=== PATIENT | female | born 1945 | race Caucasian/White ===

== ENCOUNTER 2018-06-22 07:30 | Inpatient (IN) ==
[2018-06-15 09:25] LABS: Basophils % 0.3 % (0.0-0.8); Eosinophils # 0.1 10*3/uL (0.0-0.87); Eosinophils % 2.1 % (0.00-10.9); Hematocrit 32.1 VOL% (35.7-47.0); Hemoglobin 9.8 GM/DL (12.0-16.0); Immature Granulocytes % 0.3 %; Immature Granulocytes Absolute 0.02 #; Lymphocytes % 15.9 % (21.3-54.2); Mean Corpuscular HGB Conc 30.5 GM/DL (32-36); Mean Corpuscular Hemoglobin 25 PG (27-34); Mean Corpuscular Volume 80.9 FL (87-102); Mean Platelet Volume 9.8 FL (9.6-12.0); Monocytes # 0.7 10*3/uL (0.11-0.8); Monocytes % 11.7 % (1.7-12.7); Neutrophils # 4.3 10*3/uL (1.4-7.4); Neutrophils % 69.7 % (38.7-73.9); Platelet Count 253 T/CUMM (130-400); Red Blood Count 3.97 MC/CUMM (3.8-5.5); Red Cell Distribution Width 19.6 % (9.3-17.3); White Blood Count 6.2 T/CUMM (4-12)
[2018-06-15 09:33] LABS: Apearance,Urine Slightly Hazy (Clear); Bacteria,Urine Occasional /HPF (Few); Bilirubin,Urine Negative (Negative); Blood, Urine Small mg/dL (Negative); Glucose,Urine (UA) Negative (Negative); Ketones,Urine Negative (Negative); Nitrite,Urine Positive (Negative); Protein,Urine Negative; RBC,Urine 3 /HPF (0-4); Squamous Epithelial Cell,Urine Occasional /HPF (0-10); Urine Color Yellow (Yellow); Urine Specific Gravity 1.009 (1.001-1.035); Urine Urobilinogen < 2.0 EU/DL (0.2-1.0); WBC,Urine 99 /HPF (0-6)
[2018-06-15 09:37] LABS: PT Patient Result 10.2 SECS; Partial Thromboplastin Time 24.5 SECS (0-40)
[2018-06-15 09:48] LABS: Calcium 9.1 MG/DL (8.5-10.1); Potassium 5.2 MMOL/L (3.5-5.1)
[~2018-06-22 07:30] MED LIST: SODIUM CHLORIDE 0.9% 1,000 ML IV PRN
[2018-07-06] MEDS ORDERED: ACETAMINOPHEN INJ 1,000 MG in PREMIX 1 EACH IV ONE (06:00)
[2018-07-06] MEDS ORDERED: CEFUROXIME INJ 1,500 MG in SYRINGE 1 EACH IV ONE (06:00)
[2018-07-06] MEDS ORDERED: BUPIVACAINE LIPOSOMAL 20 ML/266 MG VIAL INFILTRAT ONE (06:00)
[2018-07-06] MEDS ORDERED: ACETAMINOPHEN 1,000 MG/100 ML VIAL IV ONE ×2 (06:16→11:12)
[2018-07-06] MEDS ORDERED: CEFUROXIME 1,500 MG VIAL ONE (06:16)
[2018-07-06] MEDS ORDERED: BUPIVACAINE LIPOSOMAL 20 ML/266 MG VIAL ONE (06:22)
[2018-07-06] MEDS ORDERED: TISSUE ADHESIVE 1 EACH APPLICATOR TOP ONE (06:22)
[2018-07-06] MEDS: LACTATED RINGERS 1,000 ML IV SCH (06:24)
[2018-07-06] MEDS ORDERED: PANTOPRAZOLE 40 MG TABLET PO ONE ×2 (06:30→06:40)
[2018-07-06] MEDS ORDERED: DIAZEPAM 5 MG TABLET PO ONE (06:30)
[2018-07-06] MEDS ORDERED: PHENYLEPHRINE DRIP 20 MG/250 ML PREMIX IV ONE (06:39)
[2018-07-06] MEDS ORDERED: HEPARIN/NACL 0.9% 2 UNITS/ML 500 ML IV ONE (06:39)
[2018-07-06] MEDS ORDERED: DIAZEPAM 5 MG TABLET ONE (06:40)
[2018-07-06] MEDS ORDERED: SUGAMMADEX 200 MG/2 ML VIAL IV ONE (10:46)
[2018-07-06] MEDS ORDERED: ONDANSETRON 4 MG/2 ML VIAL IV PRN ×2 (11:01→11:27)
[2018-07-06] MEDS ORDERED: PROPOFOL 200 MG/20 ML VIAL IV ONE (11:11)
[2018-07-06] MEDS ORDERED: DESFLURANE 1 UNIT/15 MINUTE INH ONE (11:11)
[2018-07-06] MEDS ORDERED: fentaNYL 100 MCG/2 ML VIAL ONE (11:12)
[2018-07-06] MEDS ORDERED: ROCURONIUM 100 MG/10 ML VIAL IV ONE (11:12)
[2018-07-06] MEDS ORDERED: PHENYLEPHRINE 1 MG/10 ML SYRINGE IV ONE (11:12)
[2018-07-06] MEDS ORDERED: MIDAZOLAM 2 MG/2 ML VIAL ONE (11:12)
[2018-07-06] MEDS ORDERED: LACTATED RINGERS 2,000 ML IV ONE (11:12)
[2018-07-06 11:14] LABS: Apearance,Urine CLEAR (Clear); Bilirubin,Urine Negative (Negative); Blood, Urine Negative (Negative); Glucose,Urine (UA) Negative (Negative); Ketones,Urine Negative (Negative); Nitrite,Urine Negative (Negative); Protein,Urine Negative; Urine Color Straw (Yellow); Urine Specific Gravity 1.011 (1.001-1.035); Urine Urobilinogen < 2.0 EU/DL (0.2-1.0)
[2018-07-06 11:31] LABS: Basophils % 0.1 % (0.0-0.8); Eosinophils % 0.1 % (0.00-10.9); Hemoglobin 9.1 GM/DL (12.0-16.0); Immature Granulocytes % 0.3 %; Immature Granulocytes Absolute 0.04 #; Lymphocytes # 0.9 10*3/uL (1.4-4.0); Lymphocytes % 6.2 % (21.3-54.2); Mean Corpuscular HGB Conc 29.4 GM/DL (32-36); Mean Corpuscular Hemoglobin 24 PG (27-34); Mean Platelet Volume 9.5 FL (9.6-12.0); Monocytes # 1.2 10*3/uL (0.11-0.8); Neutrophils # 11.7 10*3/uL (1.4-7.4); Neutrophils % 84.3 % (38.7-73.9); Platelet Count 263 T/CUMM (130-400); Red Blood Count 3.78 MC/CUMM (3.8-5.5); Red Cell Distribution Width 18.4 % (9.3-17.3); White Blood Count 13.8 T/CUMM (4-12)
[2018-07-06] MEDS: HYDROmorphone 2 MG/1 ML VIAL IV PRN ×2 (11:33→11:45)
[2018-07-06 11:50] LABS: Calcium 8.4 MG/DL (8.5-10.1); Osmolality,Calculated 284.5 MOS/KG (273-304)
[2018-07-06] MEDS: KETOROLAC 15 MG/1 ML VIAL IV SCH ×3 (12:46→22:57)
[2018-07-06] MEDS: GABAPENTIN 100 MG CAPSULE PO SCH ×2 (15:02→22:23)
[2018-07-06] MEDS: POTASSIUM CHLORIDE INJ 10 MEQ in SODIUM CHLORIDE 0.45% 1,000 ML IV SCH ×2 (15:02→22:55)
[2018-07-06] MEDS: ACETAMINOPHEN INJ 1,000 MG in PREMIX 1 EACH IV SCH (18:56)
[2018-07-06] MEDS: CEFUROXIME INJ 1,500 MG in SYRINGE 1 EACH IV SCH (19:55)
[2018-07-07] MEDS: ACETAMINOPHEN INJ 1,000 MG in PREMIX 1 EACH IV SCH (00:38)
[2018-07-07] MEDS: KETOROLAC 15 MG/1 ML VIAL IV SCH ×3 (05:15→17:43)
[2018-07-07 05:57] LABS: Basophils % 0.1 % (0.0-0.8); Eosinophils % 0.2 % (0.00-10.9); Hematocrit 27.2 VOL% (35.7-47.0); Hemoglobin 8.2 GM/DL (12.0-16.0); Immature Granulocytes % 0.2 %; Immature Granulocytes Absolute 0.02 #; Lymphocytes # 0.9 10*3/uL (1.4-4.0); Mean Corpuscular HGB Conc 30.1 GM/DL (32-36); Mean Corpuscular Hemoglobin 24 PG (27-34); Mean Corpuscular Volume 80.2 FL (87-102); Mean Platelet Volume 10.6 FL (9.6-12.0); Monocytes # 1.2 10*3/uL (0.11-0.8); Monocytes % 14.2 % (1.7-12.7); Neutrophils # 6.2 10*3/uL (1.4-7.4); Neutrophils % 74.3 % (38.7-73.9); Platelet Count 239 T/CUMM (130-400); Red Blood Count 3.39 MC/CUMM (3.8-5.5); Red Cell Distribution Width 18.4 % (9.3-17.3); White Blood Count 8.3 T/CUMM (4-12)
[2018-07-07] MEDS: ENOXAPARIN 40 MG/0.4 ML SYRINGE SUBCUT SCH (05:58)
[2018-07-07] MEDS: ACETAMINOPHEN 500 MG TABLET PO SCH ×3 (05:58→17:43)
[2018-07-07] MEDS ORDERED: traMADol 50 MG TABLET PO PRN (06:00)
[2018-07-07 06:25] LABS: Calcium 8.5 MG/DL (8.5-10.1); Osmolality,Calculated 281.5 MOS/KG (273-304)
[2018-07-07] MEDS: POTASSIUM CHLORIDE INJ 10 MEQ in SODIUM CHLORIDE 0.45% 1,000 ML IV SCH (07:30)
[2018-07-07] MEDS: CEFUROXIME INJ 1,500 MG in SYRINGE 1 EACH IV SCH (07:55)
[2018-07-07] MEDS ORDERED: PANTOPRAZOLE 40 MG VIAL IV SCH (09:00)
[2018-07-07] MEDS: CELECOXIB 200 MG CAPSULE PO SCH ×2 (09:00→20:38)
[2018-07-07] MEDS: GABAPENTIN 100 MG CAPSULE PO SCH ×3 (09:00→20:39)
[2018-07-07] MEDS: LACTATED RINGERS 1,000 ML IV SCH (10:15)
[2018-07-07] MEDS: CYCLOBENZAPRINE 10 MG TABLET PO SCH ×2 (15:07→20:38)
[2018-07-07] MEDS: metFORMIN 500 MG TABLET PO SCH (17:43)
[2018-07-07] MEDS: LOSARTAN 50 MG TABLET PO SCH (20:38)
[2018-07-08] MEDS: KETOROLAC 15 MG/1 ML VIAL IV SCH ×2 (00:28→04:43)
[2018-07-08] MEDS: ACETAMINOPHEN 500 MG TABLET PO SCH ×5 (00:28→22:30)
[2018-07-08] MEDS: ENOXAPARIN 40 MG/0.4 ML SYRINGE SUBCUT SCH (04:43)
[2018-07-08 05:42] LABS: Calcium 8.5 MG/DL (8.5-10.1); Osmolality,Calculated 281.4 MOS/KG (273-304)
[2018-07-08 05:50] LABS: Basophils % 0.4 % (0.0-0.8); Eosinophils # 0.1 10*3/uL (0.0-0.87); Eosinophils % 1.9 % (0.00-10.9); Hemoglobin 11.5 GM/DL (12.0-16.0); Immature Granulocytes % 0.6 %; Immature Granulocytes Absolute 0.03 #; Lymphocytes # 0.7 10*3/uL (1.4-4.0); Lymphocytes % 12.7 % (21.3-54.2); Mean Corpuscular HGB Conc 29.3 GM/DL (32-36); Mean Corpuscular Hemoglobin 25 PG (27-34); Mean Corpuscular Volume 83.8 FL (87-102); Mean Platelet Volume 11.3 FL (9.6-12.0); Monocytes # 0.7 10*3/uL (0.11-0.8); Monocytes % 12.7 % (1.7-12.7); Neutrophils # 3.8 10*3/uL (1.4-7.4); Neutrophils % 71.7 % (38.7-73.9); Platelet Count 169 T/CUMM (130-400); Red Blood Count 4.68 MC/CUMM (3.8-5.5); Red Cell Distribution Width 18.5 % (9.3-17.3); White Blood Count 5.3 T/CUMM (4-12)
[2018-07-08 05:51] LABS: Hematocrit 39.2 VOL% (35.7-47.0)
[2018-07-08] MEDS ORDERED: NON-FORMULARY MEDICATION (Meloxicam [Meloxicam] 15 MG) PO SCH (09:00)
[2018-07-08] MEDS ORDERED: NON-FORMULARY MEDICATION (Liraglutide [Victoza 2-Pak] 0.6 MG) SQ SCH (09:00)
[2018-07-08] MEDS: LACTATED RINGERS 1,000 ML IV SCH (09:08)
[2018-07-08] MEDS: LEVOTHYROXINE 125 MCG TABLET PO SCH (09:10)
[2018-07-08] MEDS: metFORMIN 500 MG TABLET PO SCH ×2 (09:10→17:28)
[2018-07-08] MEDS: amLODIPine 10 MG TABLET PO SCH (09:10)
[2018-07-08] MEDS: PIOGLITAZONE 15 MG TABLET PO SCH (09:10)
[2018-07-08] MEDS: CYCLOBENZAPRINE 10 MG TABLET PO SCH ×3 (09:10→20:23)
[2018-07-08] MEDS: DULoxetine 30 MG CAPSULE PO SCH (09:10)
[2018-07-08] MEDS: TOLTERODINE LA 4 MG CAPSULE PO SCH (09:11)
[2018-07-08] MEDS: GABAPENTIN 100 MG CAPSULE PO SCH ×3 (09:11→20:23)
[2018-07-08] MEDS: ARIPiprazole 10 MG TABLET PO SCH (09:11)
[2018-07-08] MEDS: PANTOPRAZOLE 20 MG TABLET PO SCH (09:11)
[2018-07-08] MEDS: CELECOXIB 200 MG CAPSULE PO SCH ×2 (09:11→20:23)
[2018-07-08] MEDS: ATORVASTATIN 40 MG TABLET PO SCH (09:11)
[2018-07-08] MEDS: LOSARTAN 50 MG TABLET PO SCH (20:23)
[2018-07-09] MEDS: ACETAMINOPHEN 500 MG TABLET PO SCH (04:03)
[2018-07-09] MEDS: ENOXAPARIN 40 MG/0.4 ML SYRINGE SUBCUT SCH (04:03)
[2018-07-09] MEDS: LACTATED RINGERS 1,000 ML IV SCH (06:11)
[2018-07-09 06:36] LABS: Basophils % 0.1 % (0.0-0.8); Eosinophils # 0.3 10*3/uL (0.0-0.87); Eosinophils % 3.6 % (0.00-10.9); Hematocrit 30.5 VOL% (35.7-47.0); Hemoglobin 9.1 GM/DL (12.0-16.0); Immature Granulocytes % 0.3 %; Immature Granulocytes Absolute 0.02 #; Lymphocytes % 13.5 % (21.3-54.2); Mean Corpuscular HGB Conc 29.8 GM/DL (32-36); Mean Corpuscular Hemoglobin 24 PG (27-34); Mean Corpuscular Volume 81.1 FL (87-102); Mean Platelet Volume 10.8 FL (9.6-12.0); Monocytes # 0.9 10*3/uL (0.11-0.8); Monocytes % 12.2 % (1.7-12.7); Neutrophils # 5.2 10*3/uL (1.4-7.4); Neutrophils % 70.3 % (38.7-73.9); Platelet Count 251 T/CUMM (130-400); Red Blood Count 3.76 MC/CUMM (3.8-5.5); Red Cell Distribution Width 18.1 % (9.3-17.3); White Blood Count 7.4 T/CUMM (4-12)
[2018-07-09 07:03] LABS: Calcium 8.3 MG/DL (8.5-10.1); Osmolality,Calculated 283.1 MOS/KG (273-304); Potassium 4.1 MMOL/L (3.5-5.1)
[2018-07-09 08:15] VITALS: BP 152/70
[2018-07-09] MEDS: GABAPENTIN 100 MG CAPSULE PO SCH (09:20)
[2018-07-09] MEDS: ARIPiprazole 10 MG TABLET PO SCH (09:20)
[2018-07-09] MEDS: metFORMIN 500 MG TABLET PO SCH (09:20)
[2018-07-09] MEDS: TOLTERODINE LA 4 MG CAPSULE PO SCH (09:20)
[2018-07-09] MEDS: PIOGLITAZONE 15 MG TABLET PO SCH (09:20)
[2018-07-09] MEDS: CELECOXIB 200 MG CAPSULE PO SCH (09:20)
[2018-07-09] MEDS: amLODIPine 10 MG TABLET PO SCH (09:20)
[2018-07-09] MEDS: PANTOPRAZOLE 20 MG TABLET PO SCH (09:21)
[2018-07-09] MEDS: ATORVASTATIN 40 MG TABLET PO SCH (09:21)
[2018-07-09] MEDS: DULoxetine 30 MG CAPSULE PO SCH (09:21)
[2018-07-09] MEDS: LEVOTHYROXINE 125 MCG TABLET PO SCH (09:21)
[2018-07-09] MEDS: CYCLOBENZAPRINE 10 MG TABLET PO SCH (09:21)
== END 2018-07-09 11:24 | disposition home health service (06) | DRG 165 ==
LOC: N.SDSINP 07-06 05:53 → N.CC 07-06 08:45 → N.TELEN 07-07 12:26
PROVIDERS: ADMIT Thoracic Surgery (Cardiothoracic Vascular Surgery); ATTEND Thoracic Surgery (Cardiothoracic Vascular Surgery)

== ENCOUNTER 2022-01-06 07:56 | Inpatient (IN) ==
[2022-01-06] MEDS ORDERED: DILTIAZEM 50 MG/10 ML VIAL IV STA (08:26)
[2022-01-06] MEDS ORDERED: ASPIRIN 325 MG TABLET PO STA (08:26)
[2022-01-06] MEDS ORDERED: SODIUM CHLORIDE 0.9% 1,000 ML IV STA ×2 (08:26→10:31)
[2022-01-06 08:33] LABS: Basophils % 0.3 % (0.0-0.8); Eosinophils # 0.1 10*3/uL (0.0-0.87); Hematocrit 26.6 VOL% (35.7-47.0); Hemoglobin 8.3 GM/DL (12.0-16.0); Immature Granulocytes % 1.1 %; Immature Granulocytes Absolute 0.07 #; Lymphocytes # 0.1 10*3/uL (1.4-4.0); Lymphocytes % 1.1 % (21.3-54.2); Mean Corpuscular HGB Conc 31.2 GM/DL (32-36); Mean Corpuscular Volume 90.8 FL (87-102); Mean Platelet Volume 10.4 FL (9.6-12.0); Monocytes # 1.3 10*3/uL (0.11-0.8); Monocytes % 20.4 % (1.7-12.7); Neutrophils % 76.1 % (38.7-73.9); Platelet Count 246 T/CUMM (130-400); Red Blood Count 2.93 MC/CUMM (3.8-5.5); Red Cell Distribution Width 15.9 % (9.3-17.3); White Blood Count 6.1 T/CUMM (4-12)
[2022-01-06] MEDS ORDERED: DILTIAZEM 25 MG/5 ML VIAL IV STA (08:38)
[2022-01-06 08:41] LABS: INR 1.1; PT Patient Result 11.9 SECS (10.5-12.0)
[2022-01-06 08:46] LABS: Alanine Aminotransferase 19 U/L (13-56); Albumin 1.8 G/DL (3.4-5.0); Alkaline Phosphatase 89 U/L (45-117); Aspartate Amino Transferase 20 U/L (0-37); Blood Urea Nitrogen 29 MG/DL (7-18); Calcium 8.7 MG/DL (8.5-10.1); Carbon Dioxide 25 MMOL/L (21-32); Chloride 103 MMOL/L (98-107); Estimated Glom Filtration Rate 95 ML/MIN; Glucose 121 MG/DL (74-106); Sodium 136 MMOL/L (136-145); Total Protein 5.2 G/DL (6.4-8.2)
[2022-01-06 08:57] LABS: Band Neutrophils 9 % (0-10); Eosinophils 1 % (0-10); Lymphocytes 1 % (20-55); Microcytosis 1+; Myelocytes 1 %; Total Cells Counted 100
[2022-01-06 08:58] LABS: Hypochromia Slight; Ovalocytes Slight
[2022-01-06] MEDS ORDERED: VANCOMYCIN INJ 1,000 MG in SODIUM CHLORIDE 0.9% 250 ML IV STA (10:13)
[2022-01-06] MEDS ORDERED: PIPERACILLIN/TAZOBACTAM 3,375 MG in SODIUM CHLORIDE 0.9% 100 ML IV STA (10:13)
[2022-01-06] MEDS ORDERED: DILTIAZEM INJ 100 MG in SODIUM CHLORIDE 0.9% 100 ML IV SCH (10:30)
[2022-01-06] MEDS ORDERED: GLUCAGON 1 MG VIAL IM PRN (11:10)
[2022-01-06] MEDS ORDERED: ONDANSETRON 4 MG/2 ML VIAL IV PRN (11:10)
[2022-01-06] MEDS ORDERED: ACETAMINOPHEN 325 MG TABLET PO PRN (11:10)
[2022-01-06] MEDS ORDERED: DEXTROSE 10% 250 ML BAG IV PRN (11:25)
[2022-01-06] MEDS ORDERED: VANCOMYCIN INJ 1,000 MG in SODIUM CHLORIDE 0.9% 250 ML IV SCH (11:30)
[2022-01-06 11:55] LABS: Bacteria,Urine Occasional /HPF (Few); Mucus,Urine Many /LPF (Occasional); RBC,Urine 1 /HPF (0-4)
[2022-01-06 11:56] LABS: Bilirubin,Urine Negative (Negative); Blood, Urine Negative (Negative); Glucose,Urine (UA) Negative (Negative); Ketones,Urine Negative (Negative); Nitrite,Urine Negative (Negative); Protein,Urine Trace mg/dL (Negative); Urine Appearance Clear (Clear); Urine Color Yellow (Yellow); Urine Specific Gravity 1.015 (1.001-1.035); Urine Urobilinogen 0.2 eU/dL (<2.0); Urine pH 5.5 (4.5-8.0)
[2022-01-06] MEDS: ENOXAPARIN 40 MG/0.4 ML SYRINGE SUBCUT SCH (12:11)
[2022-01-06] MEDS: INSULIN LISPRO 100 UNIT/ML SUBCUT SCH ×3 (12:21→20:51)
[2022-01-06] MEDS: PIPERACILLIN/TAZOBACTAM 3,375 MG in SODIUM CHLORIDE 0.9% 100 ML IV SCH (20:10)
[2022-01-07] MEDS: VANCOMYCIN INJ 1,250 MG in SODIUM CHLORIDE 0.9% 250 ML IV SCH ×2 (00:21→14:17)
[2022-01-07] MEDS ORDERED: PHENAZOPYRIDINE 95 MG TABLET PO ONE (03:09)
[2022-01-07] MEDS: PIPERACILLIN/TAZOBACTAM 3,375 MG in SODIUM CHLORIDE 0.9% 100 ML IV SCH ×3 (05:44→22:29)
[2022-01-07 05:51] LABS: Basophils % 0.3 % (0.0-0.8); Eosinophils # 0.1 10*3/uL (0.0-0.87); Eosinophils % 1.4 % (0.00-10.9); Hematocrit 25.2 VOL% (35.7-47.0); Hemoglobin 7.8 GM/DL (12.0-16.0); Immature Granulocytes % 1.2 %; Immature Granulocytes Absolute 0.12 #; Lymphocytes # 0.2 10*3/uL (1.4-4.0); Mean Corpuscular Volume 90.3 FL (87-102); Mean Platelet Volume 10.3 FL (9.6-12.0); Monocytes # 1.8 10*3/uL (0.11-0.8); Monocytes % 18.8 % (1.7-12.7); Neutrophils % 76.3 % (38.7-73.9); Platelet Count 200 T/CUMM (130-400); Red Blood Count 2.79 MC/CUMM (3.8-5.5); Red Cell Distribution Width 15.8 % (9.3-17.3); White Blood Count 9.7 T/CUMM (4-12)
[2022-01-07] MEDS ORDERED: LEVALBUTEROL 1.25 MG/3 ML NEB RESP TX ONE (05:57)
[2022-01-07 06:11] LABS: Calcium 9.1 MG/DL (8.5-10.1); Osmolality,Calculated 269.2 MOS/KG (273-304); Potassium 3.6 MMOL/L (3.5-5.1)
[2022-01-07 06:13] LABS: Band Neutrophils 1 % (0-10); Eosinophils 1 % (0-10); Hypochromia Slight; Lymphocytes 4 % (20-55); Microcytosis Slight; Nucleated Red Blood Cells 1 (0-5); Platelet Estimate Adequate; Total Cells Counted 100
[2022-01-07] MEDS ORDERED: PANTOPRAZOLE 40 MG TABLET PO SCH (06:30)
[2022-01-07] MEDS ORDERED: FLUTICASONE/SALMETEROL 250-50 DISKUS 14 DOSE INH PRN (07:33)
[2022-01-07] MEDS ORDERED: (Semaglutide [Ozempic] 1 mg/dose (2 mg/1.5 mL) Pen Injector) SUBCUT SCH (07:45)
[2022-01-07] MEDS ORDERED: SODIUM CHLORIDE 0.9% 1,000 ML IV ONE (08:04)
[2022-01-07] MEDS ORDERED: MYLANTA/LIDO VISC/NYST 180 ML BOTTLE SWISH/SWAL PRN (08:07)
[2022-01-07] MEDS ORDERED: FLUCONAZOLE 200 MG TABLET PO SCH (09:00)
[2022-01-07] MEDS ORDERED: PIOGLITAZONE 15 MG TABLET PO SCH (09:00)
[2022-01-07] MEDS: LOSARTAN 50 MG TABLET PO SCH (09:49)
[2022-01-07] MEDS: MULTIVITAMIN (CENTRUM) TABLET PO SCH (09:49)
[2022-01-07] MEDS: DULoxetine 30 MG CAPSULE PO SCH ×2 (09:50→22:19)
[2022-01-07] MEDS: FERROUS SULFATE 325 MG TABLET PO SCH (09:50)
[2022-01-07] MEDS: ASCORBIC ACID 500 MG TABLET PO SCH (09:50)
[2022-01-07] MEDS: METOPROLOL TARTRATE 25 MG TABLET PO SCH ×2 (09:51→22:20)
[2022-01-07] MEDS: hydroCHLOROthiazide 25 MG TABLET PO SCH (09:51)
[2022-01-07] MEDS: CHOLECALCIFEROL 1,000 UNIT TABLET PO SCH (09:51)
[2022-01-07] MEDS: GABAPENTIN 300 MG CAPSULE PO SCH ×2 (09:51→22:20)
[2022-01-07] MEDS: MULTIVITAMIN (OCUVITE) TABLET PO SCH ×2 (09:52→22:20)
[2022-01-07] MEDS: ARIPiprazole 10 MG TABLET PO SCH (09:53)
[2022-01-07] MEDS: amLODIPine 2.5 MG TABLET PO SCH (09:57)
[2022-01-07] MEDS: ATORVASTATIN 10 MG TABLET PO SCH (09:57)
[2022-01-07] MEDS: PANTOPRAZOLE 40 MG TABLET PO SCH ×2 (09:58→22:20)
[2022-01-07] MEDS: INSULIN LISPRO 100 UNIT/ML SUBCUT SCH ×4 (10:02→22:20)
[2022-01-07] MEDS: SODIUM CHLORIDE 0.9% 500 ML IV SCH ×3 (10:02→22:30)
[2022-01-07] MEDS: CYCLOBENZAPRINE 10 MG TABLET PO SCH ×2 (10:03→22:20)
[2022-01-07] MEDS: LEVOTHYROXINE 150 MCG TABLET PO SCH (10:03)
[2022-01-07] MEDS ORDERED: SODIUM CHLORIDE 0.9% 1,000 ML IV PRN (12:08)
[2022-01-07] MEDS: ENOXAPARIN 40 MG/0.4 ML SYRINGE SUBCUT SCH (14:15)
[2022-01-07] MEDS: SUCRALFATE 1 GM/10 ML UDCUP PO SCH (17:10)
[2022-01-08] MEDS: VANCOMYCIN INJ 1,250 MG in SODIUM CHLORIDE 0.9% 250 ML IV SCH ×2 (00:12→13:58)
[2022-01-08 05:23] LABS: Basophils % 0.2 % (0.0-0.8); Eosinophils # 0.1 10*3/uL (0.0-0.87); Eosinophils % 1.2 % (0.00-10.9); Hemoglobin 8.6 GM/DL (12.0-16.0); Immature Granulocytes % 1.6 %; Immature Granulocytes Absolute 0.19 #; Lymphocytes # 0.2 10*3/uL (1.4-4.0); Lymphocytes % 1.4 % (21.3-54.2); Mean Corpuscular HGB Conc 31.9 GM/DL (32-36); Mean Corpuscular Volume 89.1 FL (87-102); Mean Platelet Volume 10.7 FL (9.6-12.0); Monocytes # 1.5 10*3/uL (0.11-0.8); Monocytes % 12.7 % (1.7-12.7); Neutrophils % 82.9 % (38.7-73.9); Platelet Count 190 T/CUMM (130-400); Red Blood Count 3.03 MC/CUMM (3.8-5.5); Red Cell Distribution Width 15.9 % (9.3-17.3); White Blood Count 11.7 T/CUMM (4-12)
[2022-01-08] MEDS: PIPERACILLIN/TAZOBACTAM 3,375 MG in SODIUM CHLORIDE 0.9% 100 ML IV SCH ×3 (05:32→21:40)
[2022-01-08] MEDS: LEVOTHYROXINE 150 MCG TABLET PO SCH (05:34)
[2022-01-08] MEDS: SODIUM CHLORIDE 0.9% 500 ML IV SCH ×3 (05:36→18:50)
[2022-01-08 05:38] LABS: Calcium 9.1 MG/DL (8.5-10.1); Osmolality,Calculated 270.1 MOS/KG (273-304); Potassium 3.2 MMOL/L (3.5-5.1)
[2022-01-08 05:46] LABS: Band Neutrophils 1 % (0-10); Lymphocytes 1 % (20-55); Nucleated Red Blood Cells 1 (0-5); Platelet Estimate Adequate; Total Cells Counted 100
[2022-01-08] MEDS: SUCRALFATE 1 GM/10 ML UDCUP PO SCH ×2 (08:00→16:44)
[2022-01-08] MEDS: INSULIN LISPRO 100 UNIT/ML SUBCUT SCH ×4 (08:08→22:11)
[2022-01-08] MEDS: DULoxetine 30 MG CAPSULE PO SCH ×2 (11:30→21:41)
[2022-01-08] MEDS: hydroCHLOROthiazide 25 MG TABLET PO SCH (11:30)
[2022-01-08] MEDS: METOPROLOL TARTRATE 25 MG TABLET PO SCH ×2 (11:30→21:41)
[2022-01-08] MEDS: MULTIVITAMIN (CENTRUM) TABLET PO SCH (11:30)
[2022-01-08] MEDS: ARIPiprazole 10 MG TABLET PO SCH (11:30)
[2022-01-08] MEDS: ASCORBIC ACID 500 MG TABLET PO SCH (11:30)
[2022-01-08] MEDS: LOSARTAN 50 MG TABLET PO SCH ×2 (11:31→11:44)
[2022-01-08] MEDS: PANTOPRAZOLE 40 MG TABLET PO SCH ×2 (11:31→21:41)
[2022-01-08] MEDS: amLODIPine 2.5 MG TABLET PO SCH (11:31)
[2022-01-08] MEDS: GABAPENTIN 300 MG CAPSULE PO SCH ×2 (11:31→21:41)
[2022-01-08] MEDS: CHOLECALCIFEROL 1,000 UNIT TABLET PO SCH (11:33)
[2022-01-08] MEDS: CYCLOBENZAPRINE 10 MG TABLET PO SCH ×2 (11:39→21:49)
[2022-01-08] MEDS: DOCUSATE SODIUM 100 MG CAPSULE PO SCH ×3 (11:39→21:42)
[2022-01-08] MEDS: MULTIVITAMIN (OCUVITE) TABLET PO SCH ×2 (11:40→22:20)
[2022-01-08] MEDS: ENOXAPARIN 40 MG/0.4 ML SYRINGE SUBCUT SCH (11:43)
[2022-01-08] MEDS ORDERED: FUROSEMIDE 40 MG/4 ML VIAL IV ONE (13:00)
[2022-01-08] MEDS: FERROUS SULFATE 325 MG TABLET PO SCH (13:53)
[2022-01-08] MEDS: ATORVASTATIN 10 MG TABLET PO SCH (13:56)
[2022-01-08] MEDS: ALBUTEROL/IPRATROPIUM 3 ML NEB RESP TX SCH ×4 (14:43→23:10)
[2022-01-08] MEDS: POTASSIUM CHLORIDE RIDER 10 MEQ/100 ML PREMIX IV SCH ×3 (14:47→17:13)
[2022-01-08] MEDS: methylPREDNISolone SOD SUC 40 MG/1 ML VIAL IV SCH ×2 (14:48→21:40)
[2022-01-09] MEDS: ALBUTEROL/IPRATROPIUM 3 ML NEB RESP TX SCH ×5 (03:48→19:32)
[2022-01-09] MEDS: PIPERACILLIN/TAZOBACTAM 3,375 MG in SODIUM CHLORIDE 0.9% 100 ML IV SCH ×3 (05:17→22:31)
[2022-01-09] MEDS: LEVOTHYROXINE 150 MCG TABLET PO SCH (05:42)
[2022-01-09 05:48] LABS: Basophils % 0.2 % (0.0-0.8); Hematocrit 29.5 VOL% (35.7-47.0); Hemoglobin 9.5 GM/DL (12.0-16.0); Immature Granulocytes Absolute 0.12 #; Lymphocytes # 0.1 10*3/uL (1.4-4.0); Lymphocytes % 1.1 % (21.3-54.2); Mean Corpuscular HGB Conc 32.2 GM/DL (32-36); Mean Corpuscular Volume 87.5 FL (87-102); Mean Platelet Volume 10.4 FL (9.6-12.0); Monocytes # 0.3 10*3/uL (0.11-0.8); Monocytes % 2.2 % (1.7-12.7); Neutrophils % 95.5 % (38.7-73.9); Platelet Count 215 T/CUMM (130-400); Red Blood Count 3.37 MC/CUMM (3.8-5.5); Red Cell Distribution Width 15.6 % (9.3-17.3); White Blood Count 12.4 T/CUMM (4-12)
[2022-01-09] MEDS: methylPREDNISolone SOD SUC 40 MG/1 ML VIAL IV SCH ×3 (05:55→22:32)
[2022-01-09 06:09] LABS: Albumin 1.5 G/DL (3.4-5.0); Bilirubin,Total 0.4 MG/DL (0.20-1.00); Calcium 9.7 MG/DL (8.5-10.1); Osmolality,Calculated 267.4 MOS/KG (273-304); Potassium 3.1 MMOL/L (3.5-5.1); Total Protein 6.5 G/DL (6.4-8.2)
[2022-01-09 06:24] LABS: Band Neutrophils 1 % (0-10); Lymphocytes 2 % (20-55); Platelet Estimate Normal; Total Cells Counted 100
[2022-01-09] MEDS: INSULIN LISPRO 100 UNIT/ML SUBCUT SCH ×4 (07:30→22:45)
[2022-01-09] MEDS ORDERED: MAGNESIUM SULF RIDER 2 GM/50 ML PREMIX IV PRN (07:36)
[2022-01-09] MEDS ORDERED: MAGNESIUM SULF RIDER 4 GM/100 ML PREMIX IV PRN (07:36)
[2022-01-09] MEDS ORDERED: POTASSIUM CHLORIDE 20 MEQ TABLET PO PRN (08:15)
[2022-01-09] MEDS ORDERED: FUROSEMIDE 20 MG/2 ML VIAL IV ONE (09:25)
[2022-01-09] MEDS ORDERED: BISACODYL 10 MG SUPP RECTAL PRN (09:35)
[2022-01-09] MEDS: POTASSIUM CHLORIDE RIDER 10 MEQ/100 ML PREMIX IV SCH ×3 (09:40→11:46)
[2022-01-09] MEDS: GABAPENTIN 300 MG CAPSULE PO SCH ×2 (09:49→22:26)
[2022-01-09] MEDS: ASCORBIC ACID 500 MG TABLET PO SCH (09:50)
[2022-01-09] MEDS: DOCUSATE SODIUM 100 MG CAPSULE PO SCH ×3 (09:50→22:33)
[2022-01-09] MEDS: PANTOPRAZOLE 40 MG TABLET PO SCH ×2 (09:50→22:26)
[2022-01-09] MEDS: hydroCHLOROthiazide 25 MG TABLET PO SCH (09:50)
[2022-01-09] MEDS: ARIPiprazole 10 MG TABLET PO SCH (09:50)
[2022-01-09] MEDS: DULoxetine 30 MG CAPSULE PO SCH ×2 (09:50→22:25)
[2022-01-09] MEDS: CYCLOBENZAPRINE 10 MG TABLET PO SCH ×2 (09:50→22:24)
[2022-01-09] MEDS: MULTIVITAMIN (OCUVITE) TABLET PO SCH ×2 (09:50→22:23)
[2022-01-09] MEDS: LOSARTAN 50 MG TABLET PO SCH (09:50)
[2022-01-09] MEDS: amLODIPine 2.5 MG TABLET PO SCH (09:50)
[2022-01-09] MEDS: METOPROLOL TARTRATE 25 MG TABLET PO SCH ×2 (09:50→22:25)
[2022-01-09] MEDS: CHOLECALCIFEROL 1,000 UNIT TABLET PO SCH (09:50)
[2022-01-09] MEDS: MULTIVITAMIN (CENTRUM) TABLET PO SCH (09:50)
[2022-01-09] MEDS: SUCRALFATE 1 GM/10 ML UDCUP PO SCH ×2 (09:51→18:16)
[2022-01-09] MEDS ORDERED: BISACODYL 10 MG SUPP RECTAL ONE (10:30)
[2022-01-09] MEDS: ENOXAPARIN 40 MG/0.4 ML SYRINGE SUBCUT SCH (11:36)
[2022-01-09] MEDS: SODIUM CHLORIDE 0.9% 500 ML IV SCH (13:17)
[2022-01-10] MEDS: ALBUTEROL/IPRATROPIUM 3 ML NEB RESP TX SCH ×7 (00:30→23:56)
[2022-01-10] MEDS: PIPERACILLIN/TAZOBACTAM 3,375 MG in SODIUM CHLORIDE 0.9% 100 ML IV SCH ×3 (05:08→21:02)
[2022-01-10] MEDS: methylPREDNISolone SOD SUC 40 MG/1 ML VIAL IV SCH ×3 (05:08→21:03)
[2022-01-10] MEDS: LEVOTHYROXINE 150 MCG TABLET PO SCH (05:41)
[2022-01-10 05:57] LABS: Basophils % 0.2 % (0.0-0.8); Hematocrit 29.1 VOL% (35.7-47.0); Hemoglobin 8.8 GM/DL (12.0-16.0); Immature Granulocytes Absolute 0.14 #; Lymphocytes # 0.2 10*3/uL (1.4-4.0); Lymphocytes % 1.1 % (21.3-54.2); Mean Corpuscular HGB Conc 30.2 GM/DL (32-36); Mean Corpuscular Volume 88.4 FL (87-102); Mean Platelet Volume 10.1 FL (9.6-12.0); Monocytes # 0.7 10*3/uL (0.11-0.8); Neutrophils % 92.7 % (38.7-73.9); Platelet Count 196 T/CUMM (130-400); Red Blood Count 3.29 MC/CUMM (3.8-5.5); Red Cell Distribution Width 15.6 % (9.3-17.3); White Blood Count 14.1 T/CUMM (4-12)
[2022-01-10 06:17] LABS: Alanine Aminotransferase 42 U/L (13-56); Albumin 1.6 G/DL (3.4-5.0); Alkaline Phosphatase 108 U/L (45-117); Aspartate Amino Transferase 32 U/L (0-37); Bilirubin,Total < 0.39 MG/DL (0.20-1.00); Blood Urea Nitrogen 20 MG/DL (7-18); Calcium 9.8 MG/DL (8.5-10.1); Carbon Dioxide 32 MMOL/L (21-32); Chloride 95 MMOL/L (98-107); Glucose 146 MG/DL (74-106); Osmolality,Calculated 269.5 MOS/KG (273-304); Potassium 3.2 MMOL/L (3.5-5.1); Sodium 132 MMOL/L (136-145); Total Protein 6.2 G/DL (6.4-8.2)
[2022-01-10 06:21] LABS: Lymphocytes 1 % (20-55); Microcytosis Slight; Total Cells Counted 100
[2022-01-10 06:22] LABS: Hypochromia Slight; Ovalocytes Slight
[2022-01-10] MEDS: SODIUM CHLORIDE 0.9% 500 ML IV SCH ×3 (07:40→16:59)
[2022-01-10] MEDS ORDERED: POTASSIUM CHLORIDE RIDER 10 MEQ/100 ML PREMIX IV SCH (08:00)
[2022-01-10] MEDS: INSULIN LISPRO 100 UNIT/ML SUBCUT SCH ×4 (08:32→20:59)
[2022-01-10] MEDS: SUCRALFATE 1 GM/10 ML UDCUP PO SCH ×2 (08:32→16:51)
[2022-01-10] MEDS: GABAPENTIN 300 MG CAPSULE PO SCH ×2 (08:34→21:03)
[2022-01-10] MEDS: MULTIVITAMIN (OCUVITE) TABLET PO SCH ×2 (08:34→21:02)
[2022-01-10] MEDS: DOCUSATE SODIUM 100 MG CAPSULE PO SCH ×3 (08:34→21:02)
[2022-01-10] MEDS: hydroCHLOROthiazide 25 MG TABLET PO SCH (08:34)
[2022-01-10] MEDS: LOSARTAN 50 MG TABLET PO SCH (08:34)
[2022-01-10] MEDS: ASCORBIC ACID 500 MG TABLET PO SCH (08:35)
[2022-01-10] MEDS: MULTIVITAMIN (CENTRUM) TABLET PO SCH (08:35)
[2022-01-10] MEDS: PANTOPRAZOLE 40 MG TABLET PO SCH ×2 (08:35→21:03)
[2022-01-10] MEDS: METOPROLOL TARTRATE 25 MG TABLET PO SCH ×2 (08:35→21:03)
[2022-01-10] MEDS: CHOLECALCIFEROL 1,000 UNIT TABLET PO SCH (08:35)
[2022-01-10] MEDS: amLODIPine 2.5 MG TABLET PO SCH (08:35)
[2022-01-10] MEDS: CYCLOBENZAPRINE 10 MG TABLET PO SCH ×2 (08:35→21:04)
[2022-01-10] MEDS: DULoxetine 30 MG CAPSULE PO SCH ×2 (08:35→21:02)
[2022-01-10] MEDS: ARIPiprazole 10 MG TABLET PO SCH (08:40)
[2022-01-10] MEDS ORDERED: MAGNESIUM SULF INJ 3 GM in SODIUM CHLORIDE 0.9% 100 ML IV ONE (09:00)
[2022-01-10] MEDS: POTASSIUM CHLORIDE RIDER 20 MEQ/100 ML PREMIX IV SCH ×2 (10:28→12:57)
[2022-01-10] MEDS: POLYETHYLENE GLYCOL POWDER 17 GM PACK PO SCH (12:19)
[2022-01-10] MEDS: ENOXAPARIN 40 MG/0.4 ML SYRINGE SUBCUT SCH (12:20)
[2022-01-11] MEDS: ALBUTEROL/IPRATROPIUM 3 ML NEB RESP TX SCH ×5 (03:50→19:22)
[2022-01-11] MEDS: methylPREDNISolone SOD SUC 40 MG/1 ML VIAL IV SCH ×3 (04:35→20:22)
[2022-01-11] MEDS: PIPERACILLIN/TAZOBACTAM 3,375 MG in SODIUM CHLORIDE 0.9% 100 ML IV SCH ×2 (04:35→13:59)
[2022-01-11] MEDS: SODIUM CHLORIDE 0.9% 500 ML IV SCH ×2 (04:53→19:21)
[2022-01-11 05:24] LABS: Basophils % 0.1 % (0.0-0.8); Hematocrit 27.3 VOL% (35.7-47.0); Hemoglobin 8.5 GM/DL (12.0-16.0); Immature Granulocytes % 1.4 %; Immature Granulocytes Absolute 0.15 #; Lymphocytes # 0.2 10*3/uL (1.4-4.0); Lymphocytes % 1.6 % (21.3-54.2); Mean Corpuscular HGB Conc 31.1 GM/DL (32-36); Mean Corpuscular Volume 89.5 FL (87-102); Mean Platelet Volume 10.3 FL (9.6-12.0); Monocytes # 0.7 10*3/uL (0.11-0.8); Monocytes % 6.5 % (1.7-12.7); Neutrophils % 90.4 % (38.7-73.9); Platelet Count 179 T/CUMM (130-400); Red Blood Count 3.05 MC/CUMM (3.8-5.5); Red Cell Distribution Width 15.7 % (9.3-17.3); White Blood Count 10.9 T/CUMM (4-12)
[2022-01-11 05:47] LABS: Band Neutrophils 2 % (0-10); Hypochromia Slight; Lymphocytes 3 % (20-55); Microcytosis Slight; Ovalocytes Slight; Total Cells Counted 100
[2022-01-11] MEDS: LEVOTHYROXINE 150 MCG TABLET PO SCH (05:50)
[2022-01-11 06:01] LABS: Alanine Aminotransferase 36 U/L (13-56); Albumin 1.7 G/DL (3.4-5.0); Alkaline Phosphatase 103 U/L (45-117); Aspartate Amino Transferase 21 U/L (0-37); Bilirubin,Total < 0.39 MG/DL (0.20-1.00); Blood Urea Nitrogen 24 MG/DL (7-18); Calcium 9.2 MG/DL (8.5-10.1); Carbon Dioxide 33 MMOL/L (21-32); Chloride 97 MMOL/L (98-107); Glucose 107 MG/DL (74-106); Potassium 3.8 MMOL/L (3.5-5.1); Sodium 136 MMOL/L (136-145); Total Protein 5.9 G/DL (6.4-8.2)
[2022-01-11] MEDS: amLODIPine 2.5 MG TABLET PO SCH (10:08)
[2022-01-11] MEDS: hydroCHLOROthiazide 25 MG TABLET PO SCH (10:09)
[2022-01-11] MEDS: METOPROLOL TARTRATE 25 MG TABLET PO SCH ×2 (10:09→20:21)
[2022-01-11] MEDS: ARIPiprazole 10 MG TABLET PO SCH (10:09)
[2022-01-11] MEDS: DULoxetine 30 MG CAPSULE PO SCH ×2 (10:09→20:21)
[2022-01-11] MEDS: DOCUSATE SODIUM 100 MG CAPSULE PO SCH ×3 (10:09→20:21)
[2022-01-11] MEDS: MULTIVITAMIN (CENTRUM) TABLET PO SCH (10:09)
[2022-01-11] MEDS: MULTIVITAMIN (OCUVITE) TABLET PO SCH ×2 (10:09→20:21)
[2022-01-11] MEDS: GABAPENTIN 300 MG CAPSULE PO SCH ×2 (10:10→20:21)
[2022-01-11] MEDS: LOSARTAN 50 MG TABLET PO SCH (10:10)
[2022-01-11] MEDS: PANTOPRAZOLE 40 MG TABLET PO SCH ×2 (10:10→20:21)
[2022-01-11] MEDS: CYCLOBENZAPRINE 10 MG TABLET PO SCH ×2 (10:10→20:21)
[2022-01-11] MEDS: SUCRALFATE 1 GM/10 ML UDCUP PO SCH ×2 (10:11→16:41)
[2022-01-11] MEDS: INSULIN LISPRO 100 UNIT/ML SUBCUT SCH ×4 (10:12→20:25)
[2022-01-11] MEDS: POLYETHYLENE GLYCOL POWDER 17 GM PACK PO SCH (10:13)
[2022-01-11] MEDS: ASCORBIC ACID 500 MG TABLET PO SCH (10:13)
[2022-01-11] MEDS: CHOLECALCIFEROL 1,000 UNIT TABLET PO SCH (10:14)
[2022-01-11] MEDS: ENOXAPARIN 40 MG/0.4 ML SYRINGE SUBCUT SCH (12:57)
[2022-01-11] MEDS ORDERED: MAGNESIUM SULF RIDER 2 GM/50 ML PREMIX IV ONE (13:10)
[2022-01-11] MEDS: LEVOFLOXACIN INJ 750 MG/150 ML PREMIX IV SCH (17:57)
[2022-01-12] MEDS: ALBUTEROL/IPRATROPIUM 3 ML NEB RESP TX SCH ×6 (00:16→19:52)
[2022-01-12 04:16] LABS: Basophils % 0.1 % (0.0-0.8); Hematocrit 28.3 VOL% (35.7-47.0); Hemoglobin 8.7 GM/DL (12.0-16.0); Immature Granulocytes % 1.4 %; Immature Granulocytes Absolute 0.12 #; Lymphocytes # 0.2 10*3/uL (1.4-4.0); Lymphocytes % 2.8 % (21.3-54.2); Mean Corpuscular HGB Conc 30.7 GM/DL (32-36); Mean Corpuscular Volume 90.4 FL (87-102); Mean Platelet Volume 10.1 FL (9.6-12.0); Monocytes # 0.7 10*3/uL (0.11-0.8); Monocytes % 8.4 % (1.7-12.7); Neutrophils % 87.3 % (38.7-73.9); Platelet Count 158 T/CUMM (130-400); Red Blood Count 3.13 MC/CUMM (3.8-5.5); Red Cell Distribution Width 15.9 % (9.3-17.3); White Blood Count 8.7 T/CUMM (4-12)
[2022-01-12 04:35] LABS: Hypochromia Slight; Lymphocytes 2 % (20-55); Platelet Estimate Adequate; Total Cells Counted 100
[2022-01-12 04:36] LABS: Alanine Aminotransferase 33 U/L (13-56); Albumin 1.8 G/DL (3.4-5.0); Alkaline Phosphatase 92 U/L (45-117); Aspartate Amino Transferase 16 U/L (0-37); Bilirubin,Total < 0.39 MG/DL (0.20-1.00); Blood Urea Nitrogen 22 MG/DL (7-18); Calcium 9.4 MG/DL (8.5-10.1); Carbon Dioxide 34 MMOL/L (21-32); Chloride 97 MMOL/L (98-107); Glucose 106 MG/DL (74-106); Microcytosis Slight; Osmolality,Calculated 275.8 MOS/KG (273-304); Potassium 4.1 MMOL/L (3.5-5.1); Sodium 137 MMOL/L (136-145); Total Protein 6.1 G/DL (6.4-8.2)
[2022-01-12] MEDS: LEVOTHYROXINE 150 MCG TABLET PO SCH (06:01)
[2022-01-12] MEDS: methylPREDNISolone SOD SUC 40 MG/1 ML VIAL IV SCH ×3 (06:02→21:29)
[2022-01-12] MEDS: INSULIN LISPRO 100 UNIT/ML SUBCUT SCH ×4 (08:27→21:20)
[2022-01-12] MEDS: SUCRALFATE 1 GM/10 ML UDCUP PO SCH ×2 (09:32→17:22)
[2022-01-12] MEDS: POLYETHYLENE GLYCOL POWDER 17 GM PACK PO SCH (09:33)
[2022-01-12] MEDS: amLODIPine 2.5 MG TABLET PO SCH (09:34)
[2022-01-12] MEDS: DULoxetine 30 MG CAPSULE PO SCH ×2 (09:34→21:19)
[2022-01-12] MEDS: ASCORBIC ACID 500 MG TABLET PO SCH (09:34)
[2022-01-12] MEDS: GABAPENTIN 300 MG CAPSULE PO SCH ×2 (09:34→21:19)
[2022-01-12] MEDS: MULTIVITAMIN (CENTRUM) TABLET PO SCH (09:34)
[2022-01-12] MEDS: PANTOPRAZOLE 40 MG TABLET PO SCH ×2 (09:35→21:19)
[2022-01-12] MEDS: CHOLECALCIFEROL 1,000 UNIT TABLET PO SCH (09:35)
[2022-01-12] MEDS: METOPROLOL TARTRATE 25 MG TABLET PO SCH ×2 (09:35→21:19)
[2022-01-12] MEDS: LOSARTAN 50 MG TABLET PO SCH (09:35)
[2022-01-12] MEDS: hydroCHLOROthiazide 25 MG TABLET PO SCH (09:35)
[2022-01-12] MEDS: DOCUSATE SODIUM 100 MG CAPSULE PO SCH ×3 (09:36→21:19)
[2022-01-12] MEDS: ARIPiprazole 10 MG TABLET PO SCH (09:36)
[2022-01-12] MEDS ORDERED: MAGNESIUM SULF RIDER 4 GM/100 ML PREMIX IV ONE (10:55)
[2022-01-12] MEDS: CYCLOBENZAPRINE 10 MG TABLET PO SCH ×2 (10:56→21:19)
[2022-01-12] MEDS: MULTIVITAMIN (OCUVITE) TABLET PO SCH ×2 (10:57→21:19)
[2022-01-12] MEDS: ENOXAPARIN 40 MG/0.4 ML SYRINGE SUBCUT SCH (11:42)
[2022-01-12] MEDS: LEVOFLOXACIN INJ 750 MG/150 ML PREMIX IV SCH (17:16)
[2022-01-13] MEDS: ALBUTEROL/IPRATROPIUM 3 ML NEB RESP TX SCH ×4 (00:40→11:37)
[2022-01-13] MEDS: LEVOTHYROXINE 150 MCG TABLET PO SCH (06:12)
[2022-01-13] MEDS: methylPREDNISolone SOD SUC 40 MG/1 ML VIAL IV SCH ×2 (06:14→14:38)
[2022-01-13 06:33] LABS: Basophils % 0.1 % (0.0-0.8); Hemoglobin 9.3 GM/DL (12.0-16.0); Immature Granulocytes % 1.1 %; Lymphocytes # 0.2 10*3/uL (1.4-4.0); Lymphocytes % 2.6 % (21.3-54.2); Mean Corpuscular Volume 91.2 FL (87-102); Mean Platelet Volume 10.2 FL (9.6-12.0); Monocytes # 0.7 10*3/uL (0.11-0.8); Neutrophils % 88.2 % (38.7-73.9); Platelet Count 180 T/CUMM (130-400); Red Blood Count 3.29 MC/CUMM (3.8-5.5); Red Cell Distribution Width 15.9 % (9.3-17.3); White Blood Count 8.8 T/CUMM (4-12)
[2022-01-13 07:00] LABS: Alanine Aminotransferase 30 U/L (13-56); Albumin 1.9 G/DL (3.4-5.0); Alkaline Phosphatase 91 U/L (45-117); Aspartate Amino Transferase 16 U/L (0-37); Bilirubin,Total < 0.39 MG/DL (0.20-1.00); Blood Urea Nitrogen 22 MG/DL (7-18); Calcium 7.6 MG/DL (8.5-10.1); Carbon Dioxide 31 MMOL/L (21-32); Chloride 95 MMOL/L (98-107); Glucose 108 MG/DL (74-106); Osmolality,Calculated 269.4 MOS/KG (273-304); Potassium 5.2 MMOL/L (3.5-5.1); Sodium 133 MMOL/L (136-145); Total Protein 6.3 G/DL (6.4-8.2)
[2022-01-13] MEDS ORDERED: MAGNESIUM SULF RIDER 2 GM/50 ML PREMIX IV ONE (07:37)
[2022-01-13] MEDS: INSULIN LISPRO 100 UNIT/ML SUBCUT SCH ×2 (08:17→11:59)
[2022-01-13] MEDS: DULoxetine 30 MG CAPSULE PO SCH (08:46)
[2022-01-13] MEDS: SUCRALFATE 1 GM/10 ML UDCUP PO SCH (08:46)
[2022-01-13] MEDS: CHOLECALCIFEROL 1,000 UNIT TABLET PO SCH (08:47)
[2022-01-13] MEDS: MULTIVITAMIN (CENTRUM) TABLET PO SCH (08:47)
[2022-01-13] MEDS: hydroCHLOROthiazide 25 MG TABLET PO SCH (08:47)
[2022-01-13] MEDS: amLODIPine 2.5 MG TABLET PO SCH (08:47)
[2022-01-13] MEDS: METOPROLOL TARTRATE 25 MG TABLET PO SCH (08:47)
[2022-01-13] MEDS: GABAPENTIN 300 MG CAPSULE PO SCH (08:48)
[2022-01-13] MEDS: PANTOPRAZOLE 40 MG TABLET PO SCH (08:48)
[2022-01-13] MEDS: ARIPiprazole 10 MG TABLET PO SCH (08:48)
[2022-01-13] MEDS: LOSARTAN 50 MG TABLET PO SCH (08:48)
[2022-01-13] MEDS: ASCORBIC ACID 500 MG TABLET PO SCH (08:48)
[2022-01-13] MEDS: POLYETHYLENE GLYCOL POWDER 17 GM PACK PO SCH (08:49)
[2022-01-13] MEDS: DOCUSATE SODIUM 100 MG CAPSULE PO SCH (08:56)
[2022-01-13 09:02] LABS: Calcium 9.8 MG/DL (8.5-10.1); Osmolality,Calculated 267.7 MOS/KG (273-304); Potassium 4.6 MMOL/L (3.5-5.1)
[2022-01-13] MEDS: MULTIVITAMIN (OCUVITE) TABLET PO SCH (09:05)
[2022-01-13] MEDS: CYCLOBENZAPRINE 10 MG TABLET PO SCH (09:05)
[2022-01-13 11:47] VITALS: BP 112/78
[2022-01-13] MEDS: ENOXAPARIN 40 MG/0.4 ML SYRINGE SUBCUT SCH (11:57)
[2022-01-13] MEDS ORDERED: HEPARIN LOCK FLUSH 500 UNIT/5 ML SYRINGE IV ONE (14:25)
== END 2022-01-13 14:38 | disposition swing bed (61) | DRG 178 ==
LOC: N.ED 07:56 → N.EDINP 11:10 → SUATTDRO 11:10 → N.TELEN 16:30
PROVIDERS: ADMIT Internal Medicine; ATTEND Internal Medicine

== ENCOUNTER 2022-01-21 08:34 | Inpatient (IN) ==
[2022-01-21] MEDS ORDERED: methylPREDNISolone SOD SUC 125 MG/2 ML VIAL IV STA (09:01)
[2022-01-21] MEDS ORDERED: PIPERACILLIN/TAZOBACTAM 3,375 MG in SODIUM CHLORIDE 0.9% 100 ML IV STA (09:01)
[2022-01-21] MEDS ORDERED: SODIUM CHLORIDE 0.9% 1,000 ML IV STA ×2 (09:01→10:37)
[2022-01-21] MEDS ORDERED: ONDANSETRON ODT 4 MG TABLET PO STA (09:01)
[2022-01-21] MEDS ORDERED: DILTIAZEM 25 MG/5 ML VIAL IV STA (09:05)
[2022-01-21 09:25] LABS: Basophils % 0.1 % (0.0-0.8); Eosinophils % 0.2 % (0.00-10.9); Hematocrit 30.1 VOL% (35.7-47.0); Hemoglobin 9.4 GM/DL (12.0-16.0); Immature Granulocytes % 0.5 %; Immature Granulocytes Absolute 0.05 #; Lymphocytes # 0.2 10*3/uL (1.4-4.0); Lymphocytes % 1.9 % (21.3-54.2); Mean Corpuscular HGB Conc 31.2 GM/DL (32-36); Mean Corpuscular Volume 90.4 FL (87-102); Mean Platelet Volume 10.3 FL (9.6-12.0); Monocytes # 1.1 10*3/uL (0.11-0.8); Monocytes % 10.2 % (1.7-12.7); Neutrophils % 87.1 % (38.7-73.9); Platelet Count 199 T/CUMM (130-400); Red Blood Count 3.33 MC/CUMM (3.8-5.5); Red Cell Distribution Width 17.4 % (9.3-17.3); White Blood Count 10.7 T/CUMM (4-12)
[2022-01-21 09:42] LABS: PT Patient Result 11.3 SECS (10.5-12.0); Partial Thromboplastin Time 25.4 SECS (23.8-32.1)
[2022-01-21 09:46] LABS: Band Neutrophils 6 % (0-10); Hypochromia 1+; Lymphocytes 2 % (20-55); Microcytosis 1+; Platelet Estimate Adequate; Total Cells Counted 100
[2022-01-21] MEDS: DILTIAZEM INJ 100 MG in SODIUM CHLORIDE 0.9% 100 ML IV SCH ×2 (09:49→22:03)
[2022-01-21 09:52] LABS: Albumin 2.1 G/DL (3.4-5.0); Bilirubin,Total 0.5 MG/DL (0.20-1.00); Calcium 8.6 MG/DL (8.5-10.1); Osmolality,Calculated 273.5 MOS/KG (273-304); Potassium 4.6 MMOL/L (3.5-5.1); Total Protein 5.4 G/DL (6.4-8.2)
[2022-01-21] MEDS ORDERED: MAGNESIUM SULF RIDER 4 GM/100 ML PREMIX IV STA (11:39)
[2022-01-21] MEDS ORDERED: ENOXAPARIN 60 MG/0.6 ML SYRINGE SUBCUT SCH (13:00)
[2022-01-21 13:29] LABS: Free T4 (Free Thyroxine) 1.48 NG/DL (0.76-1.46)
[2022-01-21] MEDS: LEVALBUTEROL 1.25 MG/3 ML NEB RESP TX SCH ×2 (15:20→23:35)
[2022-01-21] MEDS: SODIUM CHLORIDE 0.9% 1,000 ML IV SCH ×3 (17:41→22:42)
[2022-01-21] MEDS: PIPERACILLIN/TAZOBACTAM 3,375 MG in SODIUM CHLORIDE 0.9% 100 ML IV SCH (17:42)
[2022-01-21] MEDS: methylPREDNISolone SOD SUC 40 MG/1 ML VIAL IV SCH (17:51)
[2022-01-21] MEDS: ENOXAPARIN 40 MG/0.4 ML SYRINGE SUBCUT SCH (20:50)
[2022-01-21] MEDS: MULTIVITAMIN (OCUVITE) TABLET PO SCH (20:50)
[2022-01-21] MEDS ORDERED: DEXTROSE 10% 250 ML BAG IV PRN (22:08)
[2022-01-21] MEDS ORDERED: GLUCAGON 1 MG VIAL IM PRN (22:08)
[2022-01-21] MEDS ORDERED: INSULIN REGULAR 100 UNIT/ML SUBCUT ONE (22:11)
[2022-01-22] MEDS: PIPERACILLIN/TAZOBACTAM 3,375 MG in SODIUM CHLORIDE 0.9% 100 ML IV SCH (01:35)
[2022-01-22] MEDS: methylPREDNISolone SOD SUC 40 MG/1 ML VIAL IV SCH (01:35)
[2022-01-22 05:49] LABS: Hematocrit 26.6 VOL% (35.7-47.0); Hemoglobin 8.2 GM/DL (12.0-16.0); Immature Granulocytes % 0.6 %; Immature Granulocytes Absolute 0.05 #; Lymphocytes # 0.1 10*3/uL (1.4-4.0); Lymphocytes % 0.7 % (21.3-54.2); Mean Corpuscular HGB Conc 30.8 GM/DL (32-36); Mean Corpuscular Volume 91.4 FL (87-102); Mean Platelet Volume 10.3 FL (9.6-12.0); Monocytes # 0.1 10*3/uL (0.11-0.8); Monocytes % 1.5 % (1.7-12.7); Neutrophils % 97.2 % (38.7-73.9); Platelet Count 178 T/CUMM (130-400); Red Blood Count 2.91 MC/CUMM (3.8-5.5); Red Cell Distribution Width 17.4 % (9.3-17.3); White Blood Count 8.9 T/CUMM (4-12)
[2022-01-22 05:58] LABS: Osmolality,Calculated 269.4 MOS/KG (273-304); Potassium 3.9 MMOL/L (3.5-5.1)
[2022-01-22 06:28] LABS: Anisocytosis 1+; Band Neutrophils 16 % (0-10); Burr Cells Few; Lymphocytes 2 % (20-55); Platelet Estimate Normal; Total Cells Counted 100
[2022-01-22] MEDS: LEVALBUTEROL 1.25 MG/3 ML NEB RESP TX SCH ×3 (07:20→22:25)
[2022-01-22] MEDS ORDERED: LOSARTAN 50 MG TABLET PO SCH (09:00)
[2022-01-22] MEDS: CHOLECALCIFEROL 1,000 UNIT TABLET PO SCH (09:09)
[2022-01-22] MEDS: MULTIVITAMIN (OCUVITE) TABLET PO SCH ×2 (09:09→20:34)
[2022-01-22] MEDS: predniSONE 20 MG TABLET PO SCH (09:09)
[2022-01-22] MEDS: INSULIN LISPRO 100 UNIT/ML SUBCUT SCH ×4 (10:06→22:05)
[2022-01-22] MEDS: ENOXAPARIN 40 MG/0.4 ML SYRINGE SUBCUT SCH (20:35)
[2022-01-23 05:19] LABS: Eosinophils % 0.1 % (0.00-10.9); Hematocrit 26.5 VOL% (35.7-47.0); Hemoglobin 8.1 GM/DL (12.0-16.0); Immature Granulocytes % 0.9 %; Immature Granulocytes Absolute 0.09 #; Lymphocytes # 0.1 10*3/uL (1.4-4.0); Lymphocytes % 1.4 % (21.3-54.2); Mean Corpuscular HGB Conc 30.6 GM/DL (32-36); Mean Platelet Volume 9.7 FL (9.6-12.0); Monocytes # 0.9 10*3/uL (0.11-0.8); Monocytes % 8.7 % (1.7-12.7); Neutrophils % 88.9 % (38.7-73.9); Platelet Count 170 T/CUMM (130-400); Red Blood Count 2.88 MC/CUMM (3.8-5.5); Red Cell Distribution Width 17.6 % (9.3-17.3); White Blood Count 9.8 T/CUMM (4-12)
[2022-01-23 05:44] LABS: Hypochromia Slight; Lymphocytes 3 % (20-55); Nucleated Red Blood Cells 1 (0-5); Platelet Estimate Adequate; Total Cells Counted 100
[2022-01-23 05:59] LABS: Osmolality,Calculated 276.7 MOS/KG (273-304); Potassium 3.7 MMOL/L (3.5-5.1)
[2022-01-23] MEDS: INSULIN LISPRO 100 UNIT/ML SUBCUT SCH ×4 (08:10→21:38)
[2022-01-23] MEDS: CHOLECALCIFEROL 1,000 UNIT TABLET PO SCH (08:52)
[2022-01-23] MEDS: predniSONE 20 MG TABLET PO SCH (08:52)
[2022-01-23] MEDS: MULTIVITAMIN (OCUVITE) TABLET PO SCH ×2 (08:52→21:37)
[2022-01-23] MEDS: CLOTRIMAZOLE 10 MG TROCHE PO SCH ×3 (08:52→21:37)
[2022-01-23] MEDS: DILTIAZEM 60 MG TABLET PO SCH ×3 (09:38→21:37)
[2022-01-23] MEDS: MAGNESIUM OXIDE 400 MG TABLET PO SCH ×2 (09:38→21:37)
[2022-01-23] MEDS: LEVALBUTEROL 1.25 MG/3 ML NEB RESP TX SCH ×2 (12:47→13:55)
[2022-01-23] MEDS: ENOXAPARIN 40 MG/0.4 ML SYRINGE SUBCUT SCH (21:37)
[2022-01-24] MEDS: LEVALBUTEROL 1.25 MG/3 ML NEB RESP TX SCH ×4 (03:40→23:59)
[2022-01-24 05:27] LABS: Basophils % 0.1 % (0.0-0.8); Eosinophils # 0.1 10*3/uL (0.0-0.87); Eosinophils % 0.8 % (0.00-10.9); Hematocrit 29.6 VOL% (35.7-47.0); Hemoglobin 9.1 GM/DL (12.0-16.0); Immature Granulocytes % 0.5 %; Immature Granulocytes Absolute 0.05 #; Lymphocytes # 0.2 10*3/uL (1.4-4.0); Mean Corpuscular HGB Conc 30.7 GM/DL (32-36); Mean Corpuscular Volume 93.1 FL (87-102); Monocytes % 11.1 % (1.7-12.7); Neutrophils % 85.5 % (38.7-73.9); Platelet Count 182 T/CUMM (130-400); Red Blood Count 3.18 MC/CUMM (3.8-5.5); Red Cell Distribution Width 17.4 % (9.3-17.3); White Blood Count 9.2 T/CUMM (4-12)
[2022-01-24 05:59] LABS: Band Neutrophils 5 % (0-10); Hypochromia Slight; Lymphocytes 4 % (20-55); Platelet Estimate Adequate; Total Cells Counted 100
[2022-01-24 06:08] LABS: Calcium 9.2 MG/DL (8.5-10.1); Osmolality,Calculated 273.8 MOS/KG (273-304); Potassium 3.6 MMOL/L (3.5-5.1)
[2022-01-24] MEDS: INSULIN LISPRO 100 UNIT/ML SUBCUT SCH ×4 (08:08→20:59)
[2022-01-24] MEDS ORDERED: MAGNESIUM SULF RIDER 2 GM/50 ML PREMIX IV ONE (09:00)
[2022-01-24] MEDS: predniSONE 20 MG TABLET PO SCH (09:03)
[2022-01-24] MEDS: DILTIAZEM 60 MG TABLET PO SCH ×4 (09:03→21:01)
[2022-01-24] MEDS: CHOLECALCIFEROL 1,000 UNIT TABLET PO SCH (09:03)
[2022-01-24] MEDS: CLOTRIMAZOLE 10 MG TROCHE PO SCH ×3 (09:03→21:02)
[2022-01-24] MEDS: MAGNESIUM OXIDE 400 MG TABLET PO SCH ×2 (09:03→21:02)
[2022-01-24] MEDS: MULTIVITAMIN (OCUVITE) TABLET PO SCH ×2 (09:04→21:02)
[2022-01-24] MEDS: ENOXAPARIN 40 MG/0.4 ML SYRINGE SUBCUT SCH (21:00)
[2022-01-25] MEDS: LEVALBUTEROL 1.25 MG/3 ML NEB RESP TX SCH ×3 (07:12→23:14)
[2022-01-25] MEDS: INSULIN LISPRO 100 UNIT/ML SUBCUT SCH ×4 (08:47→22:15)
[2022-01-25] MEDS: MAGNESIUM OXIDE 400 MG TABLET PO SCH ×2 (08:47→22:14)
[2022-01-25] MEDS: predniSONE 20 MG TABLET PO SCH (08:47)
[2022-01-25] MEDS: MULTIVITAMIN (OCUVITE) TABLET PO SCH ×2 (08:47→22:14)
[2022-01-25] MEDS: CHOLECALCIFEROL 1,000 UNIT TABLET PO SCH (08:47)
[2022-01-25] MEDS: CLOTRIMAZOLE 10 MG TROCHE PO SCH ×3 (08:47→22:14)
[2022-01-25] MEDS: DILTIAZEM 60 MG TABLET PO SCH ×4 (08:48→22:15)
[2022-01-25] MEDS ORDERED: METOPROLOL TARTRATE 50 MG TABLET PO SCH ×2 (09:30→11:00)
[2022-01-25] MEDS ORDERED: METOPROLOL TARTRATE 25 MG TABLET PO SCH (11:00)
[2022-01-25] MEDS: METOPROLOL TARTRATE 25 MG TABLET PO SCH ×2 (12:14→22:14)
[2022-01-25] MEDS: ENOXAPARIN 40 MG/0.4 ML SYRINGE SUBCUT SCH (22:14)
[2022-01-26] MEDS: LEVALBUTEROL 1.25 MG/3 ML NEB RESP TX SCH (07:09)
[2022-01-26] MEDS ORDERED: FUROSEMIDE 40 MG/4 ML VIAL IV ONE (07:56)
[2022-01-26] MEDS: INSULIN LISPRO 100 UNIT/ML SUBCUT SCH ×4 (08:06→22:20)
[2022-01-26] MEDS: CHOLECALCIFEROL 1,000 UNIT TABLET PO SCH (08:07)
[2022-01-26] MEDS: METOPROLOL TARTRATE 25 MG TABLET PO SCH ×2 (08:07→22:04)
[2022-01-26] MEDS: DILTIAZEM 60 MG TABLET PO SCH ×4 (08:07→22:04)
[2022-01-26] MEDS: CLOTRIMAZOLE 10 MG TROCHE PO SCH ×3 (08:07→22:04)
[2022-01-26] MEDS: predniSONE 20 MG TABLET PO SCH (08:07)
[2022-01-26] MEDS: MAGNESIUM OXIDE 400 MG TABLET PO SCH ×2 (08:07→22:04)
[2022-01-26] MEDS ORDERED: BISACODYL 10 MG SUPP RECTAL ONE (08:56)
[2022-01-26] MEDS ORDERED: POLYETHYLENE GLYCOL POWDER 17 GM PACK PO SCH (09:00)
[2022-01-26] MEDS ORDERED: NON-FORMULARY MEDICATION (Esomeprazole Magnesium [Nexium] 40 mg Capsule,Delayed Release(Dr PO SCH (09:00)
[2022-01-26] MEDS: MULTIVITAMIN (OCUVITE) TABLET PO SCH ×2 (09:55→22:04)
[2022-01-26] MEDS: methylPREDNISolone SOD SUC 40 MG/1 ML VIAL IV SCH ×2 (09:55→16:49)
[2022-01-26] MEDS: DOCUSATE SODIUM 100 MG CAPSULE PO SCH ×2 (09:55→22:03)
[2022-01-26] MEDS: FLUCONAZOLE INJ 200 MG/100 ML PREMIX IV SCH (09:56)
[2022-01-26] MEDS: AZITHROMYCIN INJ 500 MG in SODIUM CHLORIDE 0.9% 250 ML IV SCH (10:58)
[2022-01-26] MEDS: ALBUTEROL/IPRATROPIUM 3 ML NEB RESP TX SCH ×2 (13:30→19:30)
[2022-01-26] MEDS: FUROSEMIDE 40 MG/4 ML VIAL IV SCH (16:10)
[2022-01-26] MEDS ORDERED: MAGNESIUM SULF RIDER 2 GM/50 ML PREMIX IV ONE (18:53)
[2022-01-26] MEDS: ENOXAPARIN 40 MG/0.4 ML SYRINGE SUBCUT SCH (22:05)
[2022-01-27] MEDS: methylPREDNISolone SOD SUC 40 MG/1 ML VIAL IV SCH ×3 (02:15→16:49)
[2022-01-27 05:23] LABS: Basophils % 0.1 % (0.0-0.8); Hematocrit 30.9 VOL% (35.7-47.0); Hemoglobin 9.5 GM/DL (12.0-16.0); Immature Granulocytes % 0.4 %; Immature Granulocytes Absolute 0.04 #; Lymphocytes # 0.1 10*3/uL (1.4-4.0); Lymphocytes % 1.5 % (21.3-54.2); Mean Corpuscular HGB Conc 30.7 GM/DL (32-36); Mean Corpuscular Volume 91.2 FL (87-102); Monocytes # 0.4 10*3/uL (0.11-0.8); Monocytes % 3.9 % (1.7-12.7); Neutrophils % 94.1 % (38.7-73.9); Platelet Count 174 T/CUMM (130-400); Red Blood Count 3.39 MC/CUMM (3.8-5.5); Red Cell Distribution Width 17.8 % (9.3-17.3); White Blood Count 9.5 T/CUMM (4-12)
[2022-01-27 05:39] LABS: Calcium 9.7 MG/DL (8.5-10.1); Potassium 3.7 MMOL/L (3.5-5.1)
[2022-01-27 05:46] LABS: Hypochromia Slight; Lymphocytes 2 % (20-55); Ovalocytes Slight; Platelet Estimate Adequate; Total Cells Counted 100
[2022-01-27] MEDS: FUROSEMIDE 40 MG/4 ML VIAL IV SCH ×2 (08:46→16:49)
[2022-01-27] MEDS: CLOTRIMAZOLE 10 MG TROCHE PO SCH ×3 (08:47→20:11)
[2022-01-27] MEDS: INSULIN LISPRO 100 UNIT/ML SUBCUT SCH ×4 (08:47→20:09)
[2022-01-27] MEDS: FLUCONAZOLE INJ 200 MG/100 ML PREMIX IV SCH (08:47)
[2022-01-27] MEDS: DILTIAZEM 60 MG TABLET PO SCH ×3 (08:48→16:42)
[2022-01-27] MEDS: MULTIVITAMIN (OCUVITE) TABLET PO SCH ×2 (08:48→20:11)
[2022-01-27] MEDS: DOCUSATE SODIUM 100 MG CAPSULE PO SCH ×2 (08:48→20:11)
[2022-01-27] MEDS: MAGNESIUM OXIDE 400 MG TABLET PO SCH ×2 (08:48→20:11)
[2022-01-27] MEDS: CHOLECALCIFEROL 1,000 UNIT TABLET PO SCH (08:48)
[2022-01-27] MEDS: METOPROLOL TARTRATE 25 MG TABLET PO SCH (08:48)
[2022-01-27] MEDS: POLYETHYLENE GLYCOL POWDER 17 GM PACK PO SCH (08:49)
[2022-01-27] MEDS: ALBUTEROL/IPRATROPIUM 3 ML NEB RESP TX SCH ×4 (09:01→19:48)
[2022-01-27] MEDS: AZITHROMYCIN INJ 500 MG in SODIUM CHLORIDE 0.9% 250 ML IV SCH (09:54)
[2022-01-27] MEDS ORDERED: ALBUTEROL/IPRATROPIUM 3 ML NEB RESP TX ONE (10:07)
[2022-01-27] MEDS: METOPROLOL TARTRATE 5 MG/5 ML VIAL IV SCH (18:10)
[2022-01-27] MEDS ORDERED: METOPROLOL TARTRATE 50 MG TABLET PO SCH (21:00)
[2022-01-28] MEDS: ALBUTEROL/IPRATROPIUM 3 ML NEB RESP TX SCH ×4 (00:41→19:33)
[2022-01-28] MEDS: METOPROLOL TARTRATE 5 MG/5 ML VIAL IV SCH ×4 (00:48→18:01)
[2022-01-28] MEDS: methylPREDNISolone SOD SUC 40 MG/1 ML VIAL IV SCH ×3 (00:49→17:35)
[2022-01-28 05:26] LABS: Basophils % 0.2 % (0.0-0.8); Hematocrit 32.5 VOL% (35.7-47.0); Immature Granulocytes % 0.8 %; Lymphocytes # 0.1 10*3/uL (1.4-4.0); Lymphocytes % 1.2 % (21.3-54.2); Mean Corpuscular HGB Conc 30.8 GM/DL (32-36); Mean Corpuscular Volume 91.5 FL (87-102); Monocytes # 0.5 10*3/uL (0.11-0.8); Monocytes % 3.9 % (1.7-12.7); Neutrophils % 93.9 % (38.7-73.9); Platelet Count 165 T/CUMM (130-400); Red Blood Count 3.55 MC/CUMM (3.8-5.5); Red Cell Distribution Width 17.9 % (9.3-17.3)
[2022-01-28 05:38] LABS: Calcium 9.7 MG/DL (8.5-10.1); Osmolality,Calculated 286.7 MOS/KG (273-304); Potassium 3.3 MMOL/L (3.5-5.1)
[2022-01-28 05:50] LABS: Band Neutrophils 2 % (0-10); Lymphocytes 1 % (20-55); Platelet Estimate Adequate; Total Cells Counted 100
[2022-01-28] MEDS: FLUCONAZOLE INJ 200 MG/100 ML PREMIX IV SCH (09:53)
[2022-01-28] MEDS: INSULIN LISPRO 100 UNIT/ML SUBCUT SCH ×4 (09:53→20:49)
[2022-01-28] MEDS: FUROSEMIDE 40 MG/4 ML VIAL IV SCH ×2 (09:54→17:30)
[2022-01-28] MEDS: DOCUSATE SODIUM 100 MG CAPSULE PO SCH ×2 (12:14→20:48)
[2022-01-28] MEDS: MAGNESIUM OXIDE 400 MG TABLET PO SCH ×2 (12:14→20:49)
[2022-01-28] MEDS: AZITHROMYCIN INJ 500 MG in SODIUM CHLORIDE 0.9% 250 ML IV SCH (12:15)
[2022-01-28] MEDS: CHOLECALCIFEROL 1,000 UNIT TABLET PO SCH (12:15)
[2022-01-28] MEDS: POLYETHYLENE GLYCOL POWDER 17 GM PACK PO SCH (12:15)
[2022-01-28] MEDS: MULTIVITAMIN (OCUVITE) TABLET PO SCH ×2 (12:15→20:50)
[2022-01-28] MEDS: CLOTRIMAZOLE 10 MG TROCHE PO SCH ×3 (12:16→20:50)
[2022-01-28] MEDS ORDERED: SODIUM CHLORIDE 0.45% 1,000 ML IV SCH (16:30)
[2022-01-29] MEDS: ALBUTEROL/IPRATROPIUM 3 ML NEB RESP TX SCH ×4 (00:11→19:25)
[2022-01-29] MEDS: METOPROLOL TARTRATE 5 MG/5 ML VIAL IV SCH ×4 (00:24→18:42)
[2022-01-29] MEDS: methylPREDNISolone SOD SUC 40 MG/1 ML VIAL IV SCH ×3 (01:04→18:42)
[2022-01-29] MEDS: LACTATED RINGERS 1,000 ML IV SCH ×2 (07:20→16:53)
[2022-01-29] MEDS: FLUCONAZOLE INJ 200 MG/100 ML PREMIX IV SCH (09:57)
[2022-01-29] MEDS: FUROSEMIDE 40 MG/4 ML VIAL IV SCH ×2 (09:59→16:00)
[2022-01-29] MEDS: INSULIN LISPRO 100 UNIT/ML SUBCUT SCH ×4 (09:59→20:45)
[2022-01-29] MEDS: DOCUSATE SODIUM 100 MG CAPSULE PO SCH ×2 (11:38→20:45)
[2022-01-29] MEDS: CHOLECALCIFEROL 1,000 UNIT TABLET PO SCH (11:39)
[2022-01-29] MEDS: CLOTRIMAZOLE 10 MG TROCHE PO SCH ×3 (11:39→20:46)
[2022-01-29] MEDS: MAGNESIUM OXIDE 400 MG TABLET PO SCH ×2 (11:39→20:45)
[2022-01-29] MEDS: MULTIVITAMIN (OCUVITE) TABLET PO SCH ×2 (11:39→20:47)
[2022-01-29] MEDS: AZITHROMYCIN INJ 500 MG in SODIUM CHLORIDE 0.9% 250 ML IV SCH (11:39)
[2022-01-29] MEDS: POLYETHYLENE GLYCOL POWDER 17 GM PACK PO SCH (11:39)
[2022-01-29] MEDS ORDERED: ONDANSETRON 4 MG/2 ML VIAL ONE (12:52)
[2022-01-29] MEDS ORDERED: propofoL 200 MG/20 ML VIAL IV ONE (12:52)
[2022-01-29] MEDS ORDERED: ETOMIDATE 20 MG/10 ML VIAL IV ONE (12:52)
[2022-01-29] MEDS: HYDROmorphone 1 MG/1 ML SYRINGE IV PRN (16:00)
[2022-01-30] MEDS: methylPREDNISolone SOD SUC 40 MG/1 ML VIAL IV SCH ×3 (00:42→18:11)
[2022-01-30] MEDS: METOPROLOL TARTRATE 5 MG/5 ML VIAL IV SCH ×5 (00:43→23:49)
[2022-01-30] MEDS: ALBUTEROL/IPRATROPIUM 3 ML NEB RESP TX SCH ×4 (00:45→19:12)
[2022-01-30] MEDS: HYDROmorphone 1 MG/1 ML SYRINGE IV PRN ×5 (00:46→22:52)
[2022-01-30] MEDS: INSULIN LISPRO 100 UNIT/ML SUBCUT SCH ×4 (08:20→20:45)
[2022-01-30] MEDS: AZITHROMYCIN INJ 500 MG in SODIUM CHLORIDE 0.9% 250 ML IV SCH (09:30)
[2022-01-30] MEDS: DOCUSATE SODIUM 100 MG CAPSULE PO SCH ×3 (12:20→22:42)
[2022-01-30] MEDS: MAGNESIUM OXIDE 400 MG TABLET PO SCH ×2 (12:20→21:27)
[2022-01-30] MEDS: FUROSEMIDE 40 MG/4 ML VIAL IV SCH ×2 (12:20→16:40)
[2022-01-30] MEDS: POLYETHYLENE GLYCOL POWDER 17 GM PACK PO SCH (12:21)
[2022-01-30] MEDS: MULTIVITAMIN (OCUVITE) TABLET PO SCH ×2 (12:21→21:28)
[2022-01-30] MEDS: CLOTRIMAZOLE 10 MG TROCHE PO SCH ×3 (12:21→21:27)
[2022-01-30] MEDS: CHOLECALCIFEROL 1,000 UNIT TABLET PO SCH (12:22)
[2022-01-30] MEDS: FLUCONAZOLE INJ 200 MG/100 ML PREMIX IV SCH (12:22)
[2022-01-30] MEDS: LACTATED RINGERS 1,000 ML IV SCH (18:09)
[2022-01-30] MEDS ORDERED: LACTULOSE 20 GM/30 ML UDCUP PEG SCH (21:00)
[2022-01-30] MEDS: POLYETHYLENE GLYCOL POWDER 17 GM PACK PEG SCH (21:53)
[2022-01-30] MEDS: ENOXAPARIN 40 MG/0.4 ML SYRINGE SUBCUT SCH (21:53)
[2022-01-31] MEDS: ALBUTEROL/IPRATROPIUM 3 ML NEB RESP TX SCH ×4 (00:09→17:40)
[2022-01-31] MEDS ORDERED: methylPREDNISolone SOD SUC 40 MG/1 ML VIAL IV SCH (00:30)
[2022-01-31] MEDS: HYDROmorphone 1 MG/1 ML SYRINGE IV PRN ×3 (02:32→14:15)
[2022-01-31 04:52] LABS: Basophils % 0.1 % (0.0-0.8); Hematocrit 37.4 VOL% (35.7-47.0); Hemoglobin 11.3 GM/DL (12.0-16.0); Immature Granulocytes % 0.7 %; Immature Granulocytes Absolute 0.11 #; Lymphocytes # 0.1 10*3/uL (1.4-4.0); Lymphocytes % 0.5 % (21.3-54.2); Mean Corpuscular HGB Conc 30.2 GM/DL (32-36); Mean Corpuscular Volume 92.1 FL (87-102); Mean Platelet Volume 10.5 FL (9.6-12.0); Monocytes # 0.5 10*3/uL (0.11-0.8); Monocytes % 3.2 % (1.7-12.7); Neutrophils % 95.5 % (38.7-73.9); Platelet Count 181 T/CUMM (130-400); Red Blood Count 4.06 MC/CUMM (3.8-5.5); White Blood Count 15.1 T/CUMM (4-12)
[2022-01-31 05:13] LABS: Alanine Aminotransferase 34 U/L (13-56); Albumin 2.8 G/DL (3.4-5.0); Alkaline Phosphatase 111 U/L (45-117); Aspartate Amino Transferase 15 U/L (0-37); Bilirubin,Total < 0.39 MG/DL (0.20-1.00); Blood Urea Nitrogen 70 MG/DL (7-18); Calcium 9.8 MG/DL (8.5-10.1); Carbon Dioxide 38 MMOL/L (21-32); Chloride 98 MMOL/L (98-107); Glucose 209 MG/DL (74-106); Potassium 3.8 MMOL/L (3.5-5.1); Sodium 143 MMOL/L (136-145); Total Protein 7.1 G/DL (6.4-8.2)
[2022-01-31] MEDS: METOPROLOL TARTRATE 5 MG/5 ML VIAL IV SCH (05:23)
[2022-01-31 05:52] LABS: Anisocytosis 1+; Band Neutrophils 10 % (0-10); Platelet Estimate Normal; Total Cells Counted 100
[2022-01-31] MEDS ORDERED: LEVOTHYROXINE 150 MCG TABLET PO SCH (06:00)
[2022-01-31] MEDS: POLYETHYLENE GLYCOL POWDER 17 GM PACK PEG SCH (09:25)
[2022-01-31] MEDS: FUROSEMIDE 40 MG/4 ML VIAL IV SCH (09:25)
[2022-01-31] MEDS: DOCUSATE SODIUM 100 MG CAPSULE PO SCH (09:25)
[2022-01-31] MEDS: MAGNESIUM OXIDE 400 MG TABLET PO SCH (09:55)
[2022-01-31] MEDS: CHOLECALCIFEROL 1,000 UNIT TABLET PO SCH (09:55)
[2022-01-31] MEDS: MULTIVITAMIN (OCUVITE) TABLET PO SCH (09:55)
[2022-01-31] MEDS: INSULIN LISPRO 100 UNIT/ML SUBCUT SCH ×3 (10:40→18:16)
[2022-01-31] MEDS: CLOTRIMAZOLE 10 MG TROCHE PO SCH ×2 (10:43→15:25)
[2022-01-31] MEDS ORDERED: glyBURIDE 2.5 MG TABLET PEG SCH (17:00)
[2022-01-31] MEDS ORDERED: metFORMIN 500 MG TABLET PEG SCH (17:00)
[2022-01-31] MEDS ORDERED: METOPROLOL TARTRATE 5 MG/5 ML VIAL IV ONE ×2 (17:19→17:25)
[2022-01-31] MEDS ORDERED: HYDROcod/ACETAMIN 7.5-325 MG/15 ML UDCUP PEG PRN (17:26)
[2022-01-31] MEDS ORDERED: FUROSEMIDE 40 MG/4 ML VIAL IV ONE (17:27)
[2022-01-31 17:39] LABS: Arterial Base Excess iSTAT 11 MMOL/L (-2.5-2.5); Arterial Bicarbonate iSTAT 35.5 MMOL/L (20-26); Arterial O2 Saturation iSTAT 94 % (95-100); Arterial PCO2 iSTAT 47 MM HG (35-48); Arterial PO2 iSTAT 66 MM HG (80-95); Arterial Total CO2 iSTAT 37 MMO/L (23-27); Arterial pH iSTAT 7.487 (7.35-7.45)
[2022-01-31] MEDS ORDERED: SODIUM CHLORIDE 0.9% 500 ML IV ONE (17:46)
[2022-01-31] MEDS ORDERED: SODIUM CHLORIDE 0.9% 250 ML IV ONE (18:00)
[2022-01-31 18:03] LABS: Basophils % 0.2 % (0.0-0.8); Eosinophils % 0.1 % (0.00-10.9); Hematocrit 37.7 VOL% (35.7-47.0); Hemoglobin 11.3 GM/DL (12.0-16.0); Immature Granulocytes % 0.8 %; Immature Granulocytes Absolute 0.09 #; Lymphocytes % 0.4 % (21.3-54.2); Mean Corpuscular Volume 94.3 FL (87-102); Mean Platelet Volume 11.1 FL (9.6-12.0); Monocytes # 0.1 10*3/uL (0.11-0.8); Monocytes % 1.1 % (1.7-12.7); NRBC # 0.06 10*3/uL; Neutrophils % 97.4 % (38.7-73.9); Platelet Count 167 T/CUMM (130-400); Red Cell Distribution Width 18.5 % (9.3-17.3)
[2022-01-31] MEDS: LACTATED RINGERS 1,000 ML IV SCH (18:15)
[2022-01-31 18:33] LABS: Alanine Aminotransferase 36 U/L (13-56); Albumin 2.6 G/DL (3.4-5.0); Alkaline Phosphatase 110 U/L (45-117); Aspartate Amino Transferase 18 U/L (0-37); Blood Urea Nitrogen 91 MG/DL (7-18); Calcium 9.7 MG/DL (8.5-10.1); Carbon Dioxide 36 MMOL/L (21-32); Chloride 99 MMOL/L (98-107); Glucose 203 MG/DL (74-106); Sodium 143 MMOL/L (136-145); Total Protein 6.7 G/DL (6.4-8.2)
[2022-01-31 18:55] LABS: Band Neutrophils 15 % (0-10); Metamyelocytes 2 %; Total Cells Counted 100
[2022-01-31 18:56] LABS: Anisocytosis 1+; Stomatocytes Slight
[2022-01-31 18:58] LABS: Hypochromia Slight; Platelet Estimate Normal
[2022-01-31] MEDS ORDERED: METOPROLOL TARTRATE 25 MG TABLET PEG SCH (21:00)
[2022-01-31] MEDS ORDERED: METOPROLOL TARTRATE 50 MG TABLET PEG SCH (21:00)
[2022-01-31] MEDS ORDERED: DILTIAZEM 60 MG TABLET PO SCH (21:00)
[2022-02-01] MEDS: MAGNESIUM OXIDE 400 MG TABLET PO SCH ×3 (00:01→23:24)
[2022-02-01] MEDS: DOCUSATE SODIUM 100 MG CAPSULE PO SCH ×2 (00:01→09:50)
[2022-02-01] MEDS: CLOTRIMAZOLE 10 MG TROCHE PO SCH ×4 (00:01→23:24)
[2022-02-01] MEDS: DILTIAZEM 30 MG TABLET PO SCH ×2 (00:01→09:55)
[2022-02-01] MEDS: POLYETHYLENE GLYCOL POWDER 17 GM PACK PEG SCH ×3 (00:01→23:31)
[2022-02-01] MEDS: MULTIVITAMIN (OCUVITE) TABLET PO SCH ×3 (00:02→23:24)
[2022-02-01] MEDS: ALBUTEROL/IPRATROPIUM 3 ML NEB RESP TX SCH ×5 (00:22→19:37)
[2022-02-01] MEDS ORDERED: DIGOXIN 0.5 MG/2 ML AMP IV ONE (04:48)
[2022-02-01 05:04] LABS: Basophils % 0.2 % (0.0-0.8); Eosinophils % 0.2 % (0.00-10.9); Hematocrit 33.2 VOL% (35.7-47.0); Hemoglobin 9.9 GM/DL (12.0-16.0); Immature Granulocytes Absolute 0.13 #; Lymphocytes # 0.1 10*3/uL (1.4-4.0); Lymphocytes % 0.9 % (21.3-54.2); Mean Corpuscular HGB Conc 29.8 GM/DL (32-36); Mean Corpuscular Volume 93.5 FL (87-102); Mean Platelet Volume 10.9 FL (9.6-12.0); Monocytes # 0.3 10*3/uL (0.11-0.8); Monocytes % 2.6 % (1.7-12.7); NRBC # 0.03 10*3/uL; Neutrophils % 95.1 % (38.7-73.9); Platelet Count 126 T/CUMM (130-400); Red Blood Count 3.55 MC/CUMM (3.8-5.5); Red Cell Distribution Width 18.6 % (9.3-17.3); White Blood Count 12.7 T/CUMM (4-12)
[2022-02-01 05:26] LABS: Calcium 9.6 MG/DL (8.5-10.1); Osmolality,Calculated 312.4 MOS/KG (273-304)
[2022-02-01 05:32] LABS: Band Neutrophils 6 % (0-10); Platelet Estimate Normal; Total Cells Counted 100
[2022-02-01 05:33] LABS: Hypochromia Slight
[2022-02-01 05:36] LABS: Phosphorous 3.2 MG/DL (2.5-4.9)
[2022-02-01] MEDS: LEVOTHYROXINE 150 MCG TABLET PEG SCH (06:46)
[2022-02-01] MEDS ORDERED: FUROSEMIDE 20 MG/2 ML VIAL IV SCH (08:00)
[2022-02-01] MEDS ORDERED: SODIUM CHLORIDE 0.9% 1,000 ML IV ONE (08:16)
[2022-02-01] MEDS: CHOLECALCIFEROL 1,000 UNIT TABLET PO SCH (09:50)
[2022-02-01] MEDS: INSULIN LISPRO 100 UNIT/ML SUBCUT SCH ×5 (11:27→23:31)
[2022-02-01] MEDS: SODIUM CHLORIDE 0.9% 1,000 ML IV SCH (15:05)
[2022-02-01] MEDS: DOCUSATE SODIUM 100 MG/10 ML UDCUP PO SCH (23:24)
[2022-02-01] MEDS: ENOXAPARIN 40 MG/0.4 ML SYRINGE SUBCUT SCH ×2 (23:24)
[2022-02-01] MEDS: METOPROLOL TARTRATE 25 MG TABLET PO SCH (23:31)
[2022-02-01] MEDS: INSULIN GLARGINE 100 UNIT/ML SUBCUT SCH ×2 (23:31)
[2022-02-02] MEDS: ALBUTEROL/IPRATROPIUM 3 ML NEB RESP TX SCH ×3 (00:20→14:10)
[2022-02-02] MEDS: SODIUM CHLORIDE 0.9% 1,000 ML IV SCH ×3 (02:04→14:07)
[2022-02-02] MEDS: LEVOTHYROXINE 150 MCG TABLET PEG SCH (05:27)
[2022-02-02] MEDS: DOCUSATE SODIUM 100 MG CAPSULE PO SCH (08:36)
[2022-02-02] MEDS: INSULIN LISPRO 100 UNIT/ML SUBCUT SCH ×2 (08:37→14:43)
[2022-02-02] MEDS: CLOTRIMAZOLE 10 MG TROCHE PO SCH ×3 (09:58→14:35)
[2022-02-02] MEDS: MULTIVITAMIN (OCUVITE) TABLET PO SCH (09:58)
[2022-02-02] MEDS: METOPROLOL TARTRATE 25 MG TABLET PO SCH (09:58)
[2022-02-02] MEDS: MAGNESIUM OXIDE 400 MG TABLET PO SCH (09:59)
[2022-02-02] MEDS: CHOLECALCIFEROL 1,000 UNIT TABLET PO SCH (09:59)
[2022-02-02 10:40] LABS: Alanine Aminotransferase 41 U/L (13-56); Albumin 1.9 G/DL (3.4-5.0); Alkaline Phosphatase 82 U/L (45-117); Aspartate Amino Transferase 19 U/L (0-37); Bilirubin,Total < 0.39 MG/DL (0.20-1.00); Blood Urea Nitrogen 52 MG/DL (7-18); Calcium 8.7 MG/DL (8.5-10.1); Carbon Dioxide 34 MMOL/L (21-32); Chloride 110 MMOL/L (98-107); Glucose 144 MG/DL (74-106); Osmolality,Calculated 306.6 MOS/KG (273-304); Potassium 3.1 MMOL/L (3.5-5.1); Sodium 146 MMOL/L (136-145); Total Protein 5.6 G/DL (6.4-8.2)
[2022-02-02 12:10] VITALS: BP 97/58
[2022-02-02] MEDS: POLYETHYLENE GLYCOL POWDER 17 GM PACK PEG SCH (14:07)
[2022-02-02] MEDS: DOCUSATE SODIUM 100 MG/10 ML UDCUP PO SCH (14:07)
== END 2022-02-02 16:53 | disposition hospice, home (50) | DRG 177 ==
LOC: N.ED 08:34 → N.EDINP 13:11 → SUATTDRO 13:11 → N.TELEN 16:32
PROVIDERS: ADMIT Internal Medicine; ATTEND Family Medicine
PROC: EGDWPEG (ICD-10-PCS; 2022-01-29 08:20)